=== PATIENT | male | born 1945 | race Caucasian/White ===

== ENCOUNTER → 2018-08-31 14:32 | Outpatient (CLI) | payer OTHER ==
[~2018-08-31 14:32] MED LIST: ALLOPURINOL300 MG PO; FORTAMET1000 MG PO; FOSINOPRIL-HCT1 EACH PO; SYNTHROID88 MCG PO
== END | disposition home or self-care (01) ==
LOC: LAB 14:32
DX: I82.402 Acute embolism and thrombosis of unspecified deep veins of left lower extremity (principal)

== ENCOUNTER 2018-09-05 13:50 | Inpatient (IN) | payer OTHER ==
[~2018-09-05] VITALS: Ht 182.9 cm; Wt 86.2 kg
[2018-09-05] MEDS ORDERED: FORTAMET1000 MG PO (14:04)
[2018-09-05] MEDS ORDERED: ALLOPURINOL300 MG PO (14:05)
[2018-09-05] MEDS ORDERED: SYNTHROID88 MCG PO (14:05)
[2018-09-05] MEDS ORDERED: FOSINOPRIL-HCT1 EACH PO (14:05)
== END 2018-09-07 13:57 | disposition home or self-care (01) | DRG 300 ==
LOC: ER 13:50 → MEDJ 17:58 → MEDI 17:58
PROC: BW21Y0Z Computerized Tomography (CT Scan) of Abdomen and Pelvis using Other Contrast, Unenhanced and Enhanced (ICD-10-PCS; 2018-09-06)
PROC: B32TYZZ Computerized Tomography (CT Scan) of Left Pulmonary Artery using Other Contrast (ICD-10-PCS; 2018-09-06)
PROC: B32SYZZ Computerized Tomography (CT Scan) of Right Pulmonary Artery using Other Contrast (ICD-10-PCS; 2018-09-06)
PROC: BB24Y0Z Computerized Tomography (CT Scan) of Bilateral Lungs using Other Contrast, Unenhanced and Enhanced (ICD-10-PCS; 2018-09-06)
PROC: B44HZZZ Ultrasonography of Bilateral Lower Extremity Arteries (ICD-10-PCS; 2018-09-06)
PROC: B54DZZZ Ultrasonography of Bilateral Lower Extremity Veins (ICD-10-PCS; principal; 2018-09-07)
DX: I82.412 Acute embolism and thrombosis of left femoral vein (principal); N17.8 Other acute kidney failure; I82.432 Acute embolism and thrombosis of left popliteal vein; I82.442 Acute embolism and thrombosis of left tibial vein; I87.2 Venous insufficiency (chronic) (peripheral); M10.09 Idiopathic gout, multiple sites; E03.8 Other specified hypothyroidism; E11.9 Type 2 diabetes mellitus without complications

== ENCOUNTER 2018-12-07 08:50 | Outpatient (CLI) | payer OTHER | END 2018-12-07 13:21 | disposition HB | LOC: LAB 08:50 | DX: E11.65 Type 2 diabetes mellitus with hyperglycemia (principal); N39.0 Urinary tract infection, site not specified; E11.21 Type 2 diabetes mellitus with diabetic nephropathy; I82.A21 Chronic embolism and thrombosis of right axillary vein ==

== ENCOUNTER 2018-12-13 08:40 | Outpatient (CLI) | payer OTHER | END 2018-12-13 14:33 | disposition home or self-care (01) | LOC: LAB 08:40 | DX: E11.65 Type 2 diabetes mellitus with hyperglycemia (principal); N39.0 Urinary tract infection, site not specified; E11.21 Type 2 diabetes mellitus with diabetic nephropathy; I82.A21 Chronic embolism and thrombosis of right axillary vein ==

== ENCOUNTER → 2019-01-13 16:51 | Outpatient (CLI) | payer OTHER | END | disposition home or self-care (01) | LOC: LAB 16:51 | DX: J32.8 Other chronic sinusitis (principal) ==